=== PATIENT | female | born 1960 | race Caucasian/White ===

== ENCOUNTER 2018-11-09 19:40 | Emergency (ER) | payer SELFPAY ==
[2018-11-09 19:49] VITALS: BP 140/111; PULSE 102; RESP 22; TEMP 38.9; O2SAT 94; BMI 32.4
--- NOTE | 2018-11-09 19:50 | DI.RAD.S_ITS ---
PROCEDURE: XR CHEST 2V INDICATIONS: cough, fever TECHNIQUE: 2 views of the chest were acquired. COMPARISON: None. FINDINGS: Surgical changes and devices: None. Lungs and pleura: Mild patchy bibasilar airspace opacity. No pleural effusions or pneumothorax. Mediastinum: Mediastinal contours are normal. Heart size is normal. Bones and chest wall: No suspicious bony abnormalities. Soft tissues appear unremarkable. IMPRESSION: Bibasilar pneumonia. Follow up plain films of the chest are recommended to ensure resolution, and to exclude underlying or central malignancy. Dictated by: Nayla Wasserman M.D. on 11/09/2018 at 20:14 Approved by: Nayla Wasserman M.D. on 11/09/2018 at 20:15
[2018-11-09 20:00] VITALS: BP 149/73; PULSE 89; O2SAT 95
--- NOTE | 2018-11-09 20:07 | PC.NURSE ---
Attempted PIV placement, blood specimens obtained. PIV would not flush. No PIV access at this time. Provider is aware and is ok with holding IV for now.
[2018-11-09 20:12] LABS: Add Manual Diff / Slide Review NO; Basophils Absolute Auto 0 /uL (0-100); Basophils Percent Auto 0.4 % (0-2); Eosinophils Absolute Auto 0 /uL (0-450); Eosinophils Percent Auto 0.2 % (2-4); Hematocrit 38.7 % (36-46); Hemoglobin 13.4 g/dL (12.0-16.0); Lymphocytes Absolute Auto 800 /uL (1100-4500); Lymphocytes Percent Auto 9.2 % (25-40); Mean Corpuscular HGB Conc 34.7 % (30-36); Mean Corpuscular Hemoglobin 30.5 PG (26-34); Mean Corpuscular Volume 87.8 fL (80-100); Monocytes Absolute Auto 500 /uL (0-900); Monocytes Percent Auto 6.1 % (3-14); Neutrophils Absolute Auto 7500 /uL (1500-7000); Neutrophils Percent Auto 84.1 % (50-75); Platelet Count 270 X10^3/uL (150-400); Red Cell Distribution Width 14.2 % (11.6-14.8)
[2018-11-09 20:24] LABS: Lactate (Lactic Acid) 0.9 mmol/L (0.7-2.1)
[2018-11-09 20:26] LABS: Alanine Aminotransferase 27 IU/L (9-52); Albumin 4.2 g/dL (3.5-5.0); Albumin Globulin Ratio 1.2 (1.0-2.8); Alkaline Phosphatase 115 U/L (38-126); Aspartate Aminotransferase 46 IU/L (14-36); BUN Creatinine Ratio 21.4 (6-22); Bilirubin Total 0.7 mg/dL (0.2-1.3); Blood Urea Nitrogen 15 mg/dL (7-17); Calcium 9.2 mg/dL (8.4-10.2); Carbon Dioxide 20 mmol/L (22-32); Chloride 105 mmol/L (98-107); Creatine Kinase 713 U/L (30-135); Estimated Glomerular Filt Rate > 60.0 mL/min (>60); Globulin 3.6 g/dL (1.7-4.1); Glucose 113 mg/dL (80-110); HEMOLYSIS 17 (0-50); Magnesium 1.9 mg/dL (1.6-2.3); Potassium 3.6 mmol/L (3.4-5.1); Sodium 138 mmol/L (137-145); Total Protein 7.8 g/dL (6.3-8.2)
[2018-11-09 20:30] VITALS: BP 134/85; PULSE 96; O2SAT 95
[2018-11-09 20:33] VITALS: PULSE 91; RESP 22; O2SAT 97
[2018-11-09] MEDS: ALBUTEROL/IPRATROPIUM 3 ML AMPUL INH (20:33)
[2018-11-09 20:37] LABS: B Type Natriuretic Peptide < 100 (<100); Troponin I 0.016 ng/mL (0.01-0.034)
[2018-11-09 20:41] LABS: CKMB % Relative Index 0.3 % (1.5-5.0); Creatine Kinase MB 1.83 ng/mL (<2.37)
[2018-11-09] MEDS: ACETAMINOPHEN 325 MG TABLET 975 MG PO (20:42)
[2018-11-09] MEDS: IBUPROFEN 400 MG TABLET 800 MG PO (20:42)
[2018-11-09 20:54] LABS: Procalcitonin 0.28 ng/mL (<0.5)
[2018-11-09 21:11] VITALS: PULSE 96
[2018-11-09] MEDS: levoFLOXacin 250 MG TABLET 750 MG PO (21:21)
[2018-11-09] MEDS: predniSONE 20 MG TABLET 60 MG PO (21:21)
[2018-11-09] MEDS: ALBUTEROL HFA PREPACK 1 BOX MISC (21:22)
[2018-11-09 21:27] VITALS: BP 125/67; PULSE 99; RESP 18; O2SAT 95
--- NOTE | 2018-11-09 21:34 | RT ---
11/09/20182119 Patient instructed in use of Albuterol MDI (2 puffs Q4-6H PRN) with spacer. Also emphasis on deep breath hold on inspiration, and patient has performed well in response. VS: P 105/ EE 20/ Saturation 95% on RA/ BS diminished bases at present, otherwise clear, with occasional cough with deepr breath. Lety Richardson, ARMORING MACHINE OPERATOR
--- NOTE | 2018-11-09 21:48 | ED.SOB ---
HPI - SOB/Dyspnea <HARRISON Andrews - Last Filed: 11/09/18 21:55> General Chief Complaint: Shortness of Breath/Dyspnea Stated Complaint: possible Pneumonia Time Seen by Provider: 11/09/18 19:44 Source: patient Mode of arrival: ambulatory Limitations: no limitations History of Present Illness The patient is a 58 year old female nonsmoker who denies any history of pulmonary or cardiac disease who presents with a chief complaint of shortness of breath. She states ?I think I have pneumonia ?she states that she has been around several patients with pneumonia, and has been around several sick people. She is visiting her mother who is in hospice care. She complains of fevers, has not had anything since 500 mg of Tylenol at 3:00 p.m.. She complains of a productive cough. This all started about 3 days ago. She denies any nausea vomiting diarrhea or abdominal pain. She complains of a productive cough but states it became nonproductive today. She denies any chest pain. She denies any shortness of breath. She denies any ear pain, sore throat etc. Related Data Previous Rx's Medication Instructions Recorded levofloxacin [Levaquin] 750 mg PO DAILY #6 tab 11/09/18 prednisone 50 mg PO DAILY #5 tab 11/09/18 Review of Systems <MARIO Andrews - Last Filed: 11/09/18 21:55> Review of Systems GENERAL: See HPI HEENT: Denies sinus pain, ear pain, sore throat, difficulty swallowing, dizziness. RESPIRATORY: See HPI HEENT: Denies sinus pain, ear pain, sore throat, difficulty swallowing, dizziness. RESPIRATORY: Denies dyspnea, cough, wheezing, hemoptysis, sputum. CARDIOVASCULAR: Denies chest pain, palpitations, orthopnea, edema, GASTROINTESTINAL: Denies nausea, vomiting, abdominal pain, diarrhea, constipation, melena. : Denies dysuria, frequency, incontinence, hematuria, urinary retention. MUSCULOSKELETAL: denies weakness, joint pain, or bony pain SKIN: Denies rash, skin lesions, or other NEUROLOGIC: Denies weakness, headache, numbness, change in speech, confusion, seizures, incoordination. PSYCHIATRIC: No concerning psychosocial issues. PFSH <HARRISON Andrews - Last Filed: 11/09/18 21:55> Social History Smoking Status: Never smoker Social History Smoking Status: Never smoker Exam <MARIO Andrews - Last Filed: 11/09/18 21:55> Narrative Exam Narrative: GENERAL: This is a well-nourished, well-developed patient, coughing and exam HEAD: Atraumatic. Normocephalic. No temporal or scalp tenderness. EYES: Pupils equal round and reactive. Extraocular motions intact. No scleral icterus. No injection or drainage. ENT: Nose without bleeding, purulent drainage or septal hematoma. Throat without erythema, tonsillar hypertrophy or exudate. Uvula midline. Airway patent. NECK: Trachea midline. No JVD or lymphadenopathy. Supple, nontender, no meningeal signs. CARDIOVASCULAR: Regular rate and rhythm RESPIRATORY: Bilateral crackles expiratory lower lobes. Productive cough throughout exam. No stridor. No retractions. No accessory muscle use. Slightly tachypneic on early exam GASTROINTESTINAL: Abdomen soft, non-tender, nondistended. No hepato-splenomegaly, or palpable masses. No guarding. Active bowel sounds all 4 quadrants EXTREMITIES: No clubbing, cyanosis, or edema. No joint tenderness, effusion, or edema noted. BACK: Nontender without deformity or crepitance. No flank tenderness. NEURO: AOx3. SKIN: No rash or erythema. Initial Vital Signs Initial Vital Signs: Vital Signs Temperature 102.1 F H 11/09/18 19:49 Pulse Rate 102 H 11/09/18 19:49 Respiratory Rate 22 11/09/18 19:49 Blood Pressure 140/111 H 11/09/18 19:49 Pulse Oximetry 94 11/09/18 19:49 <Edis Fisher DO - Last Filed: 11/09/18 21:56> Initial Vital Signs Initial Vital Signs: Vital Signs Temperature 102.1 F H 11/09/18 19:49 Pulse Rate 102 H 11/09/18 19:49 Respiratory Rate 22 11/09/18 19:49 Blood Pressure 140/111 H 11/09/18 19:49 Pulse Oximetry 94 11/09/18 19:49 Course <MARIO Andrews - Last Filed: 11/09/18 21:55> Orders Ordered: ED Orders 11/09/18 19:49 Consult to Respiratory Therapy Evaluate & Treat 11/09/18 19:50 XR chest 2V Stat 11/09/18 19:55 B Type Natriuretic Peptide Stat Complete Blood Count AUTO DIFF Stat Comprehensive Metabolic Panel Stat Lactate (Lactic Acid) Stat Magnesium Stat Procalcitonin Stat Troponin & CK Cardiac Panel Stat 11/09/18 20:28 Blood Culture Stat Discontinued Medications Acetaminophen (Tylenol) 975 mg PO NOW ONE Stop: 11/09/18 19:51 Last Admin: 11/09/18 20:42 Dose: 975 mg Albuterol (Ventolin Hfa Prepack) 1 box MISC SEEINSTR ONE Stop: 11/09/18 21:08 Last Admin: 11/09/18 21:22 Dose: 1 box Albuterol/Ipratropium (Duoneb) 3 ml INH NOW ONE Stop: 11/09/18 19:49 Last Admin: 11/09/18 20:33 Dose: 3 ml Ibuprofen (Advil) 800 mg PO NOW ONE Stop: 11/09/18 20:06 Last Admin: 11/09/18 20:42 Dose: 800 mg Levofloxacin (Levaquin) 750 mg PO NOW ONE Stop: 11/09/18 21:05 Last Admin: 11/09/18 21:21 Dose: 750 mg Prednisone (Deltasone) 60 mg PO NOW ONE Stop: 11/09/18 21:08 Last Admin: 11/09/18 21:21 Dose: 60 mg Vital Signs - 8 hr 11/09/18 19:49 11/09/18 20:00 11/09/18 20:30 Temperature 102.1 F H Pulse Rate 102 H 89 96 H Respiratory Rate 22 Blood Pressure 140/111 H Blood Pressure [Left Arm] 149/73 H 134/85 Pulse Oximetry 94 95 95 11/09/18 20:33 11/09/18 21:11 11/09/18 21:27 Temperature Pulse Rate 91 H 96 H 99 H Respiratory Rate 22 18 Blood Pressure Blood Pressure [Left Arm] 125/67 Pulse Oximetry 97 95 <Edis Fisher DO - Last Filed: 11/09/18 21:56> Orders Ordered: ED Orders 11/09/18 19:49 Consult to Respiratory Therapy Evaluate & Treat 11/09/18 19:50 XR chest 2V Stat 11/09/18 19:55 B Type Natriuretic Peptide Stat Complete Blood Count AUTO DIFF Stat Comprehensive Metabolic Panel Stat Lactate (Lactic Acid) Stat Magnesium Stat Procalcitonin Stat Troponin & CK Cardiac Panel Stat 11/09/18 20:28 Blood Culture Stat Discontinued Medications Acetaminophen (Tylenol) 975 mg PO NOW ONE Stop: 11/09/18 19:51 Last Admin: 11/09/18 20:42 Dose: 975 mg Albuterol (Ventolin Hfa Prepack) 1 box MISC SEEINSTR ONE Stop: 11/09/18 21:08 Last Admin: 11/09/18 21:22 Dose: 1 box Albuterol/Ipratropium (Duoneb) 3 ml INH NOW ONE Stop: 11/09/18 19:49 Last Admin: 11/09/18 20:33 Dose: 3 ml Ibuprofen (Advil) 800 mg PO NOW ONE Stop: 11/09/18 20:06 Last Admin: 11/09/18 20:42 Dose: 800 mg Levofloxacin (Levaquin) 750 mg PO NOW ONE Stop: 11/09/18 21:05 Last Admin: 11/09/18 21:21 Dose: 750 mg Prednisone (Deltasone) 60 mg PO NOW ONE Stop: 11/09/18 21:08 Last Admin: 11/09/18 21:21 Dose: 60 mg Vital Signs - 8 hr 11/09/18 19:49 11/09/18 20:00 11/09/18 20:30 Temperature 102.1 F H Pulse Rate 102 H 89 96 H Respiratory Rate 22 Blood Pressure 140/111 H Blood Pressure [Left Arm] 149/73 H 134/85 Pulse Oximetry 94 95 95 11/09/18 20:33 11/09/18 21:11 11/09/18 21:27 Temperature Pulse Rate 91 H 96 H 99 H Respiratory Rate 22 18 Blood Pressure Blood Pressure [Left Arm] 125/67 Pulse Oximetry 97 95 MDM - SOB/Dyspnea <MARIO Andrews - Last Filed: 11/09/18 21:55> Lab Data Result diagrams: 11/09/18 19:55 11/09/18 19:55 Lab Results 11/09/18 11/09/18 11/09/18 Range/Units 19:55 19:55 19:55 WBC 9.0 (4.5-11.0) X10^3/uL RBC 4.40 (4.0-5.2) X10^6/uL Hgb 13.4 (12.0-16.0) g/dL Hct 38.7 (36-46) % MCV 87.8 (80-100) fL MCH 30.5 (26-34) PG MCHC 34.7 (30-36) % RDW 14.2 (11.6-14.8) % Plt Count 270 (150-400) X10^3/uL Neut % (Auto) 84.1 H (50-75) % Lymph % (Auto) 9.2 L (25-40) % Kay % (Auto) 6.1 (3-14) % Eos % (Auto) 0.2 L (2-4) % Baso % (Auto) 0.4 (0-2) % Neut # (Auto) 7500 H (3494-1853) /uL Lymph # (Auto) 800 L (4946-6616) /uL Kay # (Auto) 500 (0-900) /uL Eos # (Auto) 0 (0-450) /uL Baso # (Auto) 0 (0-100) /uL Sodium 138 (137-145) mmol/L Potassium 3.6 (3.4-5.1) mmol/L Chloride 105 (98-107) mmol/L Carbon Dioxide 20 L (22-32) mmol/L BUN 15 (7-17) mg/dL Creatinine 0.70 (0.52-1.04) mg/dL Estimated GFR > 60.0 (>60) mL/min BUN/Creatinine Ratio 21.4 (6-22) Glucose 113 H (80-110) mg/dL Lactate (0.7-2.1) mmol/L Calcium 9.2 (8.4-10.2) mg/dL Magnesium 1.9 (1.6-2.3) mg/dL Total Bilirubin 0.7 (0.2-1.3) mg/dL AST 46 H (14-36) IU/L ALT 27 (9-52) IU/L Alkaline Phosphatase 115 (38-126) U/L Total Creatine Kinase 713 H (30-135) U/L CK-MB (CK-2) 1.83 (<2.37) ng/mL CK-MB (CK-2) Rel Index 0.3 L (1.5-5.0) % Troponin I 0.016 (0.01-0.034) ng/mL B-Natriuretic Peptide < 100 (<100) Total Protein 7.8 (6.3-8.2) g/dL Albumin 4.2 (3.5-5.0) g/dL Globulin 3.6 (1.7-4.1) g/dL Albumin/Globulin Ratio 1.2 (1.0-2.8) Procalcitonin 0.28 (<0.5) ng/mL 11/09/18 Range/Units 19:55 WBC (4.5-11.0) X10^3/uL RBC (4.0-5.2) X10^6/uL Hgb (12.0-16.0) g/dL Hct (36-46) % MCV (80-100) fL MCH (26-34) PG MCHC (30-36) % RDW (11.6-14.8) % Plt Count (150-400) X10^3/uL Neut % (Auto) (50-75) % Lymph % (Auto) (25-40) % Kay % (Auto) (3-14) % Eos % (Auto) (2-4) % Baso % (Auto) (0-2) % Neut # (Auto) (6185-7872) /uL Lymph # (Auto) (6121-6864) /uL Kay # (Auto) (0-900) /uL Eos # (Auto) (0-450) /uL Baso # (Auto) (0-100) /uL Sodium (137-145) mmol/L Potassium (3.4-5.1) mmol/L Chloride (98-107) mmol/L Carbon Dioxide (22-32) mmol/L BUN (7-17) mg/dL Creatinine (0.52-1.04) mg/dL Estimated GFR (>60) mL/min BUN/Creatinine Ratio (6-22) Glucose (80-110) mg/dL Lactate 0.9 (0.7-2.1) mmol/L Calcium (8.4-10.2) mg/dL Magnesium (1.6-2.3) mg/dL Total Bilirubin (0.2-1.3) mg/dL AST (14-36) IU/L ALT (9-52) IU/L Alkaline Phosphatase (38-126) U/L Total Creatine Kinase (30-135) U/L CK-MB (CK-2) (<2.37) ng/mL CK-MB (CK-2) Rel Index (1.5-5.0) % Troponin I (0.01-0.034) ng/mL B-Natriuretic Peptide (<100) Total Protein (6.3-8.2) g/dL Albumin (3.5-5.0) g/dL Globulin (1.7-4.1) g/dL Albumin/Globulin Ratio (1.0-2.8) Procalcitonin (<0.5) ng/mL Imaging Data Chest x-ray: Radiologist's impression: Cindi Muro 58 [address] [place] [address] XRay Report Signed Patient: Cindi MuroMR#: [id number] : 9Acct:[id number] Age/Sex: 58 / FDate of Service: 11/09/18 Loc: ED Accession Number: [id number] Procedure: XR chest 2V Ordering Provider: Jeanie CruzP- PROCEDURE: XR CHEST 2V INDICATIONS: cough, fever TECHNIQUE: 2 views of the chest were acquired. COMPARISON: None. FINDINGS: Surgical changes and devices: None. Lungs and pleura: Mild patchy bibasilar airspace opacity. No pleural effusions or pneumothorax. Mediastinum: Mediastinal contours are normal. Heart size is normal. Bones and chest wall: No suspicious bony abnormalities. Soft tissues appear unremarkable. IMPRESSION: Bibasilar pneumonia. Follow up plain films of the chest are recommended to ensure resolution, and to exclude underlying or central malignancy. Dictated by: Nayla Wasserman M.D. on 11/09/2018 at 20:14 Approved by: Nayla Wasserman M.D. on 11/09/2018 at 20:15 [facility] Narrative Medical decision making narrative: The patient is a 4-year-old female who presents with ?I think I have pneumonia.She clinically has pneumonia on exam, which correlates with her chest x-ray. She has a negative troponin, slightly elevated CK, has no leukocytosis and a normal lactate. She is able to tolerate p.o. fluids and p.o. antibiotics. She immediately request to go home, I discussed that I could certainly try to keep her in the hospital. She states she wants to go home repeatedly. I discussed at length strict return precautions for any increased respiratory effort, started her on Levaquin, steroids and she received a nebulizer in the emergency department. She was discharged with a spacer as well as an incentive spirometer. The patient is nontoxic appearing throughout her stay in the emergency department. Her exam improved after nebulizer treatment. I discussed at length follow up with PCP, discussed that the walk-in clinic and to ED followup, discussed low threshold for return emergency department visit. Patient states understanding of return precautions as well as follow-up care. No questions or concerns upon discharge. <Edis Fisher, DO - Last Filed: 11/09/18 21:56> Lab Data Lab Results 11/09/18 11/09/18 11/09/18 Range/Units 19:55 19:55 19:55 WBC 9.0 (4.5-11.0) X10^3/uL RBC 4.40 (4.0-5.2) X10^6/uL Hgb 13.4 (12.0-16.0) g/dL Hct 38.7 (36-46) % MCV 87.8 (80-100) fL MCH 30.5 (26-34) PG MCHC 34.7 (30-36) % RDW 14.2 (11.6-14.8) % Plt Count 270 (150-400) X10^3/uL Neut % (Auto) 84.1 H (50-75) % Lymph % (Auto) 9.2 L (25-40) % Kay % (Auto) 6.1 (3-14) % Eos % (Auto) 0.2 L (2-4) % Baso % (Auto) 0.4 (0-2) % Neut # (Auto) 7500 H (3185-3534) /uL Lymph # (Auto) 800 L (3219-7122) /uL Kay # (Auto) 500 (0-900) /uL Eos # (Auto) 0 (0-450) /uL Baso # (Auto) 0 (0-100) /uL Sodium 138 (137-145) mmol/L Potassium 3.6 (3.4-5.1) mmol/L Chloride 105 (98-107) mmol/L Carbon Dioxide 20 L (22-32) mmol/L BUN 15 (7-17) mg/dL Creatinine 0.70 (0.52-1.04) mg/dL Estimated GFR > 60.0 (>60) mL/min BUN/Creatinine Ratio 21.4 (6-22) Glucose 113 H (80-110) mg/dL Lactate (0.7-2.1) mmol/L Calcium 9.2 (8.4-10.2) mg/dL Magnesium 1.9 (1.6-2.3) mg/dL Total Bilirubin 0.7 (0.2-1.3) mg/dL AST 46 H (14-36) IU/L ALT 27 (9-52) IU/L Alkaline Phosphatase 115 (38-126) U/L Total Creatine Kinase 713 H (30-135) U/L CK-MB (CK-2) 1.83 (<2.37) ng/mL CK-MB (CK-2) Rel Index 0.3 L (1.5-5.0) % Troponin I 0.016 (0.01-0.034) ng/mL B-Natriuretic Peptide < 100 (<100) Total Protein 7.8 (6.3-8.2) g/dL Albumin 4.2 (3.5-5.0) g/dL Globulin 3.6 (1.7-4.1) g/dL Albumin/Globulin Ratio 1.2 (1.0-2.8) Procalcitonin 0.28 (<0.5) ng/mL 11/09/18 Range/Units 19:55 WBC (4.5-11.0) X10^3/uL RBC (4.0-5.2) X10^6/uL Hgb (12.0-16.0) g/dL Hct (36-46) % MCV (80-100) fL MCH (26-34) PG MCHC (30-36) % RDW (11.6-14.8) % Plt Count (150-400) X10^3/uL Neut % (Auto) (50-75) % Lymph % (Auto) (25-40) % Kay % (Auto) (3-14) % Eos % (Auto) (2-4) % Baso % (Auto) (0-2) % Neut # (Auto) (3074-5990) /uL Lymph # (Auto) (0330-9481) /uL Kay # (Auto) (0-900) /uL Eos # (Auto) (0-450) /uL Baso # (Auto) (0-100) /uL Sodium (137-145) mmol/L Potassium (3.4-5.1) mmol/L Chloride (98-107) mmol/L Carbon Dioxide (22-32) mmol/L BUN (7-17) mg/dL Creatinine (0.52-1.04) mg/dL Estimated GFR (>60) mL/min BUN/Creatinine Ratio (6-22) Glucose (80-110) mg/dL Lactate 0.9 (0.7-2.1) mmol/L Calcium (8.4-10.2) mg/dL Magnesium (1.6-2.3) mg/dL Total Bilirubin (0.2-1.3) mg/dL AST (14-36) IU/L ALT (9-52) IU/L Alkaline Phosphatase (38-126) U/L Total Creatine Kinase (30-135) U/L CK-MB (CK-2) (<2.37) ng/mL CK-MB (CK-2) Rel Index (1.5-5.0) % Troponin I (0.01-0.034) ng/mL B-Natriuretic Peptide (<100) Total Protein (6.3-8.2) g/dL Albumin (3.5-5.0) g/dL Globulin (1.7-4.1) g/dL Albumin/Globulin Ratio (1.0-2.8) Procalcitonin (<0.5) ng/mL Discharge Plan Departure Patient Disposition: Home Clinical Impression: Pneumonia Qualifiers: Pneumonia type: due to unspecified organism Laterality: bilateral Lung location: lower lobe of lung Qualified Code(s): J18.1 - Lobar pneumonia, unspecified organism Instructions: How to Use a Metered-Dose Inhaler, DI for Pneumonia -- Adult Activity Restrictions/Additional Instructions: You have pneumonia today. We have started antibiotic therapy, given you steroids as well as an inhaler. I have referred due to the health human resource manager, who can help you identify primary care provider. You need follow-up, especially imaging to ensure that there are no masses or anything behind the pneumonia. As I discussed, please have a low threshold to come back to the emergency department. Please rest and push fluids. Prescriptions: New prednisone 50 mg tablet 50 mg PO DAILY Qty: 5 RF: 0 levofloxacin [Levaquin] 750 mg tablet 750 mg PO DAILY Qty: 6 RF: 0 Referrals: [facility] [Outside] <Edis Fisher, - Last Filed: 11/09/18 21:56> [facility] Attending Micki Attestation: I was available for consultation during this patient's emergency department encounter
--- NOTE | 2018-11-09 21:55 | ED_ITS ---
HPI - SOB/Dyspnea <HARRISON Andrews - Last Filed: 11/09/18 21:55> General Chief Complaint: Shortness of Breath/Dyspnea Stated Complaint: possible Pneumonia Time Seen by Provider: 11/09/18 19:44 Source: patient Mode of arrival: ambulatory Limitations: no limitations History of Present Illness The patient is a 58 year old female nonsmoker who denies any history of pulmonary or cardiac disease who presents with a chief complaint of shortness of breath. She states ?I think I have pneumonia ?she states that she has been around several patients with pneumonia, and has been around several sick people. She is visiting her mother who is in hospice care. She complains of fevers, has not had anything since 500 mg of Tylenol at 3:00 p.m.. She complains of a productive cough. This all started about 3 days ago. She denies any nausea vomiting diarrhea or abdominal pain. She complains of a productive cough but states it became nonproductive today. She denies any chest pain. She denies any shortness of breath. She denies any ear pain, sore throat etc. Related Data Previous Rx's Medication Instructions Recorded levofloxacin [Levaquin] 750 mg PO DAILY #6 tab 11/09/18 prednisone 50 mg PO DAILY #5 tab 11/09/18 Review of Systems <MARIO Andrews - Last Filed: 11/09/18 21:55> Review of Systems GENERAL: See HPI HEENT: Denies sinus pain, ear pain, sore throat, difficulty swallowing, dizziness. RESPIRATORY: See HPI HEENT: Denies sinus pain, ear pain, sore throat, difficulty swallowing, dizziness. RESPIRATORY: Denies dyspnea, cough, wheezing, hemoptysis, sputum. CARDIOVASCULAR: Denies chest pain, palpitations, orthopnea, edema, GASTROINTESTINAL: Denies nausea, vomiting, abdominal pain, diarrhea, constipation, melena. : Denies dysuria, frequency, incontinence, hematuria, urinary retention. MUSCULOSKELETAL: denies weakness, joint pain, or bony pain SKIN: Denies rash, skin lesions, or other NEUROLOGIC: Denies weakness, headache, numbness, change in speech, confusion, seizures, incoordination. PSYCHIATRIC: No concerning psychosocial issues. PFSH <HARRISON Andrews - Last Filed: 11/09/18 21:55> Social History Smoking Status: Never smoker Social History Smoking Status: Never smoker Exam <MRAIO Andrews - Last Filed: 11/09/18 21:55> Narrative Exam Narrative: GENERAL: This is a well-nourished, well-developed patient, coughing and exam HEAD: Atraumatic. Normocephalic. No temporal or scalp tenderness. EYES: Pupils equal round and reactive. Extraocular motions intact. No scleral icterus. No injection or drainage. ENT: Nose without bleeding, purulent drainage or septal hematoma. Throat without erythema, tonsillar hypertrophy or exudate. Uvula midline. Airway patent. NECK: Trachea midline. No JVD or lymphadenopathy. Supple, nontender, no meningeal signs. CARDIOVASCULAR: Regular rate and rhythm RESPIRATORY: Bilateral crackles expiratory lower lobes. Productive cough t hroughout exam. No stridor. No retractions. No accessory muscle use. Slightly tachypneic on early exam GASTROINTESTINAL: Abdomen soft, non-tender, nondistended. No hepato- splenomegaly, or palpable masses. No guarding. Active bowel sounds all 4 quadrants EXTREMITIES: No clubbing, cyanosis, or edema. No joint tenderness, effusion, or edema noted. BACK: Nontender without deformity or crepitance. No flank tenderness. NEURO: AOx3. SKIN: No rash or erythema. Initial Vital Signs Initial Vital Signs: Vital Signs Temperature 102.1 F H 11/09/18 19:49 Pulse Rate 102 H 11/09/18 19:49 Respiratory Rate 22 11/09/18 19:49 Blood Pressure 140/111 H 11/09/18 19:49 Pulse Oximetry 94 11/09/18 19:49 <Edis Fisher DO - Last Filed: 11/09/18 21:56> Initial Vital Signs Initial Vital Signs: Vital Signs Temperature 102.1 F H 11/09/18 19:49 Pulse Rate 102 H 11/09/18 19:49 Respiratory Rate 22 11/09/18 19:49 Blood Pressure 140/111 H 11/09/18 19:49 Pulse Oximetry 94 11/09/18 19:49 Course <MARIO Andrews - Last Filed: 11/09/18 21:55> Orders Ordered: ED Orders 11/09/18 19:49 Consult to Respiratory Therapy Evaluate & Treat 11/09/18 19:50 XR chest 2V Stat 11/09/18 19:55 B Type Natriuretic Peptide Stat Complete Blood Count AUTO DIFF Stat Comprehensive Metabolic Panel Stat Lactate (Lactic Acid) Stat Magnesium Stat Procalcitonin Stat Troponin & CK Cardiac Panel Stat 11/09/18 20:28 Blood Culture Stat Discontinued Medications Acetaminophen (Tylenol) 975 mg PO NOW ONE Stop: 11/09/18 19:51 Last Admin: 11/09/18 20:42 Dose: 975 mg Albuterol (Ventolin Hfa Prepack) 1 box MISC SEEINSTR ONE Stop: 11/09/18 21:08 Last Admin: 11/09/18 21:22 Dose: 1 box Albuterol/Ipratropium (Duoneb) 3 ml INH NOW ONE Stop: 11/09/18 19:49 Last Admin: 11/09/18 20:33 Dose: 3 ml Ibuprofen (Advil) 800 mg PO NOW ONE Stop: 11/09/18 20:06 Last Admin: 11/09/18 20:42 Dose: 800 mg Levofloxacin (Levaquin) 750 mg PO NOW ONE Stop: 11/09/18 21:05 Last Admin: 11/09/18 21:21 Dose: 750 mg Prednisone (Deltasone) 60 mg PO NOW ONE Stop: 11/09/18 21:08 Last Admin: 11/09/18 21:21 Dose: 60 mg Vital Signs - 8 hr 11/09/18 19:49 11/09/18 20:00 11/09/18 20:30 Temperature 102.1 F H Pulse Rate 102 H 89 96 H Respiratory Rate 22 Blood Pressure 140/111 H Blood Pressure [Left Arm] 149/73 H 134/85 Pulse Oximetry 94 95 95 11/09/18 20:33 11/09/18 21:11 11/09/18 21:27 Temperature Pulse Rate 91 H 96 H 99 H Respiratory Rate 22 18 Blood Pressure Blood Pressure [Left Arm] 125/67 Pulse Oximetry 97 95 <Edis Fisher DO - Last Filed: 11/09/18 21:56> Orders Ordered: ED Orders 11/09/18 19:49 Consult to Respiratory Therapy Evaluate & Treat 11/09/18 19:50 XR chest 2V Stat 11/09/18 19:55 B Type Natriuretic Peptide Stat Complete Blood Count AUTO DIFF Stat Comprehensive Metabolic Panel Stat Lactate (Lactic Acid) Stat Magnesium Stat Procalcitonin Stat Troponin & CK Cardiac Panel Stat 11/09/18 20:28 Blood Culture Stat Discontinued Medications Acetaminophen (Tylenol) 975 mg PO NOW ONE Stop: 11/09/18 19:51 Last Admin: 11/09/18 20:42 Dose: 975 mg Albuterol (Ventolin Hfa Prepack) 1 box MISC SEEINSTR ONE Stop: 11/09/18 21:08 Last Admin: 11/09/18 21:22 Dose: 1 box Albuterol/Ipratropium (Duoneb) 3 ml INH NOW ONE Stop: 11/09/18 19:49 Last Admin: 11/09/18 20:33 Dose: 3 ml Ibuprofen (Advil) 800 mg PO NOW ONE Stop: 11/09/18 20:06 Last Admin: 11/09/18 20:42 Dose: 800 mg Levofloxacin (Levaquin) 750 mg PO NOW ONE Stop: 11/09/18 21:05 Last Admin: 11/09/18 21:21 Dose: 750 mg Prednisone (Deltasone) 60 mg PO NOW ONE Stop: 11/09/18 21:08 Last Admin: 11/09/18 21:21 Dose: 60 mg Vital Signs - 8 hr 11/09/18 19:49 11/09/18 20:00 11/09/18 20:30 Temperature 102.1 F H Pulse Rate 102 H 89 96 H Respiratory Rate 22 Blood Pressure 140/111 H Blood Pressure [Left Arm] 149/73 H 134/85 Pulse Oximetry 94 95 95 11/09/18 20:33 11/09/18 21:11 11/09/18 21:27 Temperature Pulse Rate 91 H 96 H 99 H Respiratory Rate 22 18 Blood Pressure Blood Pressure [Left Arm] 125/67 Pulse Oximetry 97 95 MDM - SOB/Dyspnea <AMRIO Andrews - Last Filed: 11/09/18 21:55> Lab Data Result diagrams: 11/09/18 19:55 11/09/18 19:55 Lab Results 11/09/18 11/09/18 11/09/18 Range/Units 19:55 19:55 19:55 WBC 9.0 (4.5-11.0) X10^3/uL RBC 4.40 (4.0-5.2) X10^6/uL Hgb 13.4 (12.0-16.0) g/dL Hct 38.7 (36-46) % MCV 87.8 (80-100) fL MCH 30.5 (26-34) PG MCHC 34.7 (30-36) % RDW 14.2 (11.6-14.8) % Plt Count 270 (150-400) X10^3/uL Neut % (Auto) 84.1 H (50-75) % Lymph % (Auto) 9.2 L (25-40) % Mitchell % (Auto) 6.1 (3-14) % Eos % (Auto) 0.2 L (2-4) % Baso % (Auto) 0.4 (0-2) % Neut # (Auto) 7500 H (8146-8773) /uL Lymph # (Auto) 800 L (9416-6659) /uL Mitchell # (Auto) 500 (0-900) /uL Eos # (Auto) 0 (0-450) /uL Baso # (Auto) 0 (0-100) /uL Sodium 138 (137-145) mmol/L Potassium 3.6 (3.4-5.1) mmol/L Chloride 105 (98-107) mmol/L Carbon Dioxide 20 L (22-32) mmol/L BUN 15 (7-17) mg/dL Creatinine 0.70 (0.52-1.04) mg/dL Estimated GFR > 60.0 (>60) mL/min BUN/Creatinine Ratio 21.4 (6-22) Glucose 113 H (80-110) mg/dL Lactate (0.7-2.1) mmol/L Calcium 9.2 (8.4-10.2) mg/dL Magnesium 1.9 (1.6-2.3) mg/dL Total Bilirubin 0.7 (0.2-1.3) mg/dL AST 46 H (14-36) IU/L ALT 27 (9-52) IU/L Alkaline Phosphatase 115 (38-126) U/L Total Creatine Kinase 713 H (30-135) U/L CK-MB (CK-2) 1.83 (<2.37) ng/mL CK-MB (CK-2) Rel Index 0.3 L (1.5-5.0) % Troponin I 0.016 (0.01-0.034) ng/mL B-Natriuretic Peptide < 100 (<100) Total Protein 7.8 (6.3-8.2) g/dL Albumin 4.2 (3.5-5.0) g/dL Globulin 3.6 (1.7-4.1) g/dL Albumin/Globulin Ratio 1.2 (1.0-2.8) Procalcitonin 0.28 (<0.5) ng/mL 11/09/18 Range/Units 19:55 WBC (4.5-11.0) X10^3/uL RBC (4.0-5.2) X10^6/uL Hgb (12.0-16.0) g/dL Hct (36-46) % MCV (80-100) fL MCH (26-34) PG MCHC (30-36) % RDW (11.6-14.8) % Plt Count (150-400) X10^3/uL Neut % (Auto) (50-75) % Lymph % (Auto) (25-40) % Mitchell % (Auto) (3-14) % Eos % (Auto) (2-4) % Baso % (Auto) (0-2) % Neut # (Auto) (6608-8299) /uL Lymph # (Auto) (2593-0470) /uL Mitchell # (Auto) (0-900) /uL Eos # (Auto) (0-450) /uL Baso # (Auto) (0-100) /uL Sodium (137-145) mmol/L Potassium (3.4-5.1) mmol/L Chloride (98-107) mmol/L Carbon Dioxide (22-32) mmol/L BUN (7-17) mg/dL Creatinine (0.52-1.04) mg/dL Estimated GFR (>60) mL/min BUN/Creatinine Ratio (6-22) Glucose (80-110) mg/dL Lactate 0.9 (0.7-2.1) mmol/L Calcium (8.4-10.2) mg/dL Magnesium (1.6-2.3) mg/dL Total Bilirubin (0.2-1.3) mg/dL AST (14-36) IU/L ALT (9-52) IU/L Alkaline Phosphatase (38-126) U/L Total Creatine Kinase (30-135) U/L CK-MB (CK-2) (<2.37) ng/mL CK-MB (CK-2) Rel Index (1.5-5.0) % Troponin I (0.01-0.034) ng/mL B-Natriuretic Peptide (<100) Total Protein (6.3-8.2) g/dL Albumin (3.5-5.0) g/dL Globulin (1.7-4.1) g/dL Albumin/Globulin Ratio (1.0-2.8) Procalcitonin (<0.5) ng/mL Imaging Data Chest x-ray: Radiologist's impression: Cindi Muro 58 F 1960 [place] [address] XRay Report Signed Patient: Cindi MuroMR#: [id number] : 9Acct:[id number] Age/Sex: 58 / FDate of Service: 11/09/18 Loc: ED Accession Number: [id number] Procedure: XR chest 2V Ordering Provider: Jeanie CruzP- PROCEDURE: XR CHEST 2V INDICATIONS: cough, fever TECHNIQUE: 2 views of the chest were acquired. COMPARISON: None. FINDINGS: Surgical changes and devices: None. Lungs and pleura: Mild patchy bibasilar airspace opacity. No pleural effusions or pneumothorax. Mediastinum: Mediastinal contours are normal. Heart size is normal. Bones and chest wall: No suspicious bony abnormalities. Soft tissues appear unremarkable. IMPRESSION: Bibasilar pneumonia. Follow up plain films of the chest are recommended to ensure resolution, and to exclude underlying or central malignancy. Dictated by: Nayla Wasserman M.D. on 11/09/2018 at 20:14 Approved by: Nayla Wasserman M.D. on 11/09/2018 at 20:15 [facility] Narrative Medical decision making narrative: The patient is a 4-year-old female who presents with ?I think I have pneumonia.She clinically has pneumonia on exam, which correlates with her chest x-ray. She has a negative troponin, slightly elevated CK, has no leukocytosis and a normal lactate. She is able to tolerate p.o. fluids and p.o. antibiotics. She immediately request to go home, I discussed that I could certainly try to keep her in the hospital. She states she wants to go home repeatedly. I discussed at length strict return precautions for any increased respiratory effort, started her on Levaquin, steroids and she received a nebulizer in the emergency department. She was discharged with a spacer as well as an incentive spirometer. The patient is nontoxic appearing throughout her stay in the emergency department. Her exam improved after nebulizer treatment. I discussed at length follow up with PCP, discussed that the walk-in clinic and to ED followup, discussed low threshold for return emergency department visit. Patient states understanding of return precautions as well as follow-up care. No questions or concerns upon discharge. <Edis Fisher, DO - Last Filed: 11/09/18 21:56> Lab Data Lab Results 11/09/18 11/09/18 11/09/18 Range/Units 19:55 19:55 19:55 WBC 9.0 (4.5-11.0) X10^3/uL RBC 4.40 (4.0-5.2) X10^6/uL Hgb 13.4 (12.0-16.0) g/dL Hct 38.7 (36-46) % MCV 87.8 (80-100) fL MCH 30.5 (26-34) PG MCHC 34.7 (30-36) % RDW 14.2 (11.6-14.8) % Plt Count 270 (150-400) X10^3/uL Neut % (Auto) 84.1 H (50-75) % Lymph % (Auto) 9.2 L (25-40) % Mitchell % (Auto) 6.1 (3-14) % Eos % (Auto) 0.2 L (2-4) % Baso % (Auto) 0.4 (0-2) % Neut # (Auto) 7500 H (6255-6700) /uL Lymph # (Auto) 800 L (1135-4358) /uL Mitchell # (Auto) 500 (0-900) /uL Eos # (Auto) 0 (0-450) /uL Baso # (Auto) 0 (0-100) /uL Sodium 138 (137-145) mmol/L Potassium 3.6 (3.4-5.1) mmol/L Chloride 105 (98-107) mmol/L Carbon Dioxide 20 L (22-32) mmol/L BUN 15 (7-17) mg/dL Creatinine 0.70 (0.52-1.04) mg/dL Estimated GFR > 60.0 (>60) mL/min BUN/Creatinine Ratio 21.4 (6-22) Glucose 113 H (80-110) mg/dL Lactate (0.7-2.1) mmol/L Calcium 9.2 (8.4-10.2) mg/dL Magnesium 1.9 (1.6-2.3) mg/dL Total Bilirubin 0.7 (0.2-1.3) mg/dL AST 46 H (14-36) IU/L ALT 27 (9-52) IU/L Alkaline Phosphatase 115 (38-126) U/L Total Creatine Kinase 713 H (30-135) U/L CK-MB (CK-2) 1.83 (<2.37) ng/mL CK-MB (CK-2) Rel Index 0.3 L (1.5-5.0) % Troponin I 0.016 (0.01-0.034) ng/mL B-Natriuretic Peptide < 100 (<100) Total Protein 7.8 (6.3-8.2) g/dL Albumin 4.2 (3.5-5.0) g/dL Globulin 3.6 (1.7-4.1) g/dL Albumin/Globulin Ratio 1.2 (1.0-2.8) Procalcitonin 0.28 (<0.5) ng/mL 11/09/18 Range/Units 19:55 WBC (4.5-11.0) X10^3/uL RBC (4.0-5.2) X10^6/uL Hgb (12.0-16.0) g/dL Hct (36-46) % MCV (80-100) fL MCH (26-34) PG MCHC (30-36) % RDW (11.6-14.8) % Plt Count (150-400) X10^3/uL Neut % (Auto) (50-75) % Lymph % (Auto) (25-40) % Mitchell % (Auto) (3-14) % Eos % (Auto) (2-4) % Baso % (Auto) (0-2) % Neut # (Auto) (2442-3009) /uL Lymph # (Auto) (5763-7700) /uL Mitchell # (Auto) (0-900) /uL Eos # (Auto) (0-450) /uL Baso # (Auto) (0-100) /uL Sodium (137-145) mmol/L Potassium (3.4-5.1) mmol/L Chloride (98-107) mmol/L Carbon Dioxide (22-32) mmol/L BUN (7-17) mg/dL Creatinine (0.52-1.04) mg/dL Estimated GFR (>60) mL/min BUN/Creatinine Ratio (6-22) Glucose (80-110) mg/dL Lactate 0.9 (0.7-2.1) mmol/L Calcium (8.4-10.2) mg/dL Magnesium (1.6-2.3) mg/dL Total Bilirubin (0.2-1.3) mg/dL AST (14-36) IU/L ALT (9-52) IU/L Alkaline Phosphatase (38-126) U/L Total Creatine Kinase (30-135) U/L CK-MB (CK-2) (<2.37) ng/mL CK-MB (CK-2) Rel Index (1.5-5.0) % Troponin I (0.01-0.034) ng/mL B-Natriuretic Peptide (<100) Total Protein (6.3-8.2) g/dL Albumin (3.5-5.0) g/dL Globulin (1.7-4.1) g/dL Albumin/Globulin Ratio (1.0-2.8) Procalcitonin (<0.5) ng/mL Discharge Plan Departure Patient Disposition: Home Clinical Impression: Pneumonia Qualifiers: Pneumonia type: due to unspecified organism Laterality: bilateral Lung location: lower lobe of lung Qualified Code(s): J18.1 - Lobar pneumonia, unspecified organism Instructions: How to Use a Metered-Dose Inhaler, DI for Pneumonia -- Adult Activity Restrictions/Additional Instructions: You have pneumonia today. We have started antibiotic therapy, given you steroids as well as an inhaler. I have referred due to the health family resource coordinator, who can help you ident huma primary care provider. You need follow-up, especially imaging to ensure that there are no masses or anything behind the pneumonia. As I discussed, please have a low threshold to come back to the emergency department. Please rest and push fluids. Prescriptions: New prednisone 50 mg tablet 50 mg PO DAILY Qty: 5 RF: 0 levofloxacin [Levaquin] 750 mg tablet 750 mg PO DAILY Qty: 6 RF: 0 Referrals: [facility] Resources [Outside] <Edis Fisher, - Last Filed: 11/09/18 21:56> [facility] ED Attending Micki Attestation: I was available for consultation during this patient's emergency department encounter
== END 2018-11-09 22:01 | disposition home or self-care (01) ==
PROVIDERS: Emergency Provider Nurse Practitioner Family
DX: J18.1 Lobar pneumonia, unspecified organism (principal)
CPT/HCPCS: 71046; 80053; 82550; 82553; 83605; 83735; 83880; 84145; 84484; 85025; 87040; 94640; 99283; 99284

== ENCOUNTER → 2024-05-19 09:38 | Outpatient (CLI) | payer MEDICARE, SELFPAY ==
--- NOTE | 2024-05-19 09:39 | DI.RAD.S_ITS ---
PROCEDURE: XR DEXA AXIAL SKELETON INDICATIONS: breast cancer screening COMPARISON: None. FINDINGS: Lumbar Spine: Bone mineral density 1.270 g/cm2, T score 2.0. Left Femoral Neck: Bone mineral density 0.805 g/cm2, T score -0.4 Left Hip: Bone mineral density 1.001 g/cm2, T score 0.5. Fracture Risk Calculation (when applicable): 10-year fracture risk of a major osteoporotic fracture 11 percent and of a hip fracture 0.5 percent. (T score greater or equal to -1.0 to: NORMAL) (T score from -1.1 to -2.4: OSTEOPENIA) (T score less than or equal to -2.5: OSTEOPOROSIS) IMPRESSION: Normal---recommend repeat DEXA as clinically indicated. Follow-up guidelines as follows: Osteoporosis: Consider a repeat DEXA and Vertebral Fracture Assessment (VFA) exam in 2 years or sooner if medically necessary, to reassess this patient's status. Osteopenia: Consider a repeat DEXA in 2-3 years to reassess this patient's status, or if there is a new clinical indication. Normal: Consider a repeat DEXA in 5 years or sooner, or if there is a new clinical indication. All treatment decisions require clinical judgment and consideration of individual patient factors, including patient preferences, comorbidities, previous drug use, risk factors not captured in the FRAX model (e.g., frailty, falls, vitamin D deficiency, increased bone turnover, interval significant decline in bone density ) and possible under- or over-estimation of fracture risk by FRAX. In addition, the NOF Guide recommends that FDA-approved medical therapies be considered in postmenopausal women and men age >= 50 years with a: * Hip or vertebral (clinical or morphometric) fracture * T-score of <=-2.5 at the spine or hip * Ten-year fracture probability by FRAX of >= 3% for hip fracture or >=20% for major osteoporotic fracture. Dictated by: Fransisco Bishop M.D. on 05/20/2024 at 4:55 Approved by: Fransisco Bishop M.D. on 05/20/2024 at 4:56
--- NOTE | 2024-05-19 09:39 | DI.MG.S_ITS ---
[address] [address] Patient: MALCOLM LOPES. Gender: Female Date of : 1960. Age: 63 MPI: [id number] Acc: [id number] MM screening mammo BI: 05/19/2024. BI-RADS: 1 CLINICAL: 63-year old female for bilateral screening mammogram. Tyrer-Cuzick lifetime risk of 7.2%. No personal or first-degree family history of breast cancer. PRIOR EXAMS No prior examinations available. MAMMOGRAPHY TECHNIQUE: Bilateral CC and MLO tomosynthesis with synthesized views were obtained. Current study was also evaluated with a Computer Aided Detection (CAD) system. DENSITY B. There are scattered areas of fibroglandular density. MAMMOGRAPHY FINDINGS Bilateral: No suspicious mass, asymmetry, microcalcification, or other abnormality seen. CONCLUSION * No evidence of malignancy. RECOMMENDATIONS Bilateral * Annual screening mammography. OVERALL ASSESSMENT CATEGORY BI-RADS-1: Negative. The [employer] recommends annual screening mammography beginning at age 40 for women with average risk of breast cancer. ELECTRONICALLY SIGNED: Landry Corado M.D. on 05/20/2024 at 01:59:10 PM Interpreting Station ID: [id number]
== END ==
PROVIDERS: PCP Family Medicine; Referring Provider Family Medicine; Visit Provider Family Medicine
DX: Z78.0 Asymptomatic menopausal state (principal); Z12.31 Encounter for screening mammogram for malignant neoplasm of breast; M85.89 Other specified disorders of bone density and structure, multiple sites
CPT/HCPCS: 77063; 77067; 77080

== ENCOUNTER 2024-06-24 06:40 | Day surgery (SDC) | payer MEDICARE, SELFPAY ==
--- NOTE | 2024-06-24 | PATH_ITS ---
[facility] Accession Number: [id number] No. of containers..01 Tissue . 01 Material submitted: . colon - DESCENDING COLON POLYP . 01 Diagnosis: DESCENDING COLON POLYP: Tubular adenoma. STO 06/25/2024 1344 Local . 01 Electronically signed: . Devendra Núñez MD, Pathologist NPI- [id number] . 01 Gross description: . DESCENDING COLON POLYP: Received in formalin are 3 fragment(s) of johnson, soft tissue measuring 0.5 x 0.2 x 0.2 cm to 0.9 x 0.6 x 0.2 cm submitted entirely in 1 cassette(s) /AMANDA 06/25/2024 1344 Local . 01 Pathologist provided ICD-10: D12.4 . 01 CPT . 921879 Specimen Comment: A courtesy copy of this report has been sent to [facility] Pathology Performed at: [address] [address], [place], [place] [id number] MD Devendra Núñez MD Phone: [phone]
[2024-06-24 07:15] VITALS: BP 138/82; PULSE 74; RESP 16; TEMP 36.4; O2SAT 99
[2024-06-24] MEDS: LACTATED RINGERS 1,000 ML 100 ML IV (07:28)
--- NOTE | 2024-06-24 07:41 | P.HP_ITS ---
History of Present Illness History of Present Illness Date Patient Seen: 06/24/24 Time Patient Seen: 07:41 Chief complaint: SDC Narrative: 63-year-old white female presents for initial screening colonoscopy. [facility] Social History Smoking Status: Never smoker alcohol intake: current Meds Home Medications and Allergies Home Medications Medication Instructions Recorded Confirmed Type lisinopril 10 mg tablet 10 mg PO DAILY #60 tabs 04/17/24 04/17/24 Rx sodium,potassium,mag sulfates 17.5 See Rx Instructions PO .COMPLEX 05/19/24 Rx gram-3.13 gram-1.6 gram oral soln #354 mL (Suprep Bowel Prep Kit) lisinopril 10 mg tablet 10 mg PO DAILY 06/24/24 06/24/24 History Allergies Allergy/AdvReac Type Severity Reaction Status Date / Time No Known Drug Allergies Allergy Verified 06/24/24 07:13 Review of Systems Review of Systems ROS: Yes All systems reviewed with the patient and are negative except as otherwise documented Exam Vital Signs (past 8 hours): - 06/24/24 07:15 Temperature 97.6 F Pulse Rate 74 Respiratory Rate 16 Blood Pressure 138/82 Pulse Oximetry 99 Oxygen Delivery Method Room Air Oxygen Delivery Method Room Air Narrative Exam Narrative: Gen: NAD, sitting comfortably in bed, appears well HEENT: Sclera are anicteric, head is normocephalic and atraumatic, trachea is midline. CV: RRR, no JVD Resp: clear to auscultation bilaterally, equal chest wall movement bilaterally Abd: soft, nontender, normoactive bowel sounds Ext: no edema, full range of motion Neuro: Cranial nerves II-XII grossly intact, no focal deficits Skin: No erythema or ecchymosis Assessment & Plan Assessment and plan (1) Colon cancer screening: Status: Acute Assessment & Plan narrative: Patient presents for colonoscopy Risks, benefits, alternatives to colonoscopy explained, including but not limited to bowel perforation or other serious complication requiring surgery at less than 1 in 5000 colonoscopies, abdominal pain, cramping or bleeding and less than 1% of colonoscopies, and the chances that we find a diagnosis that would require further intervention of about 2%. Patient agrees to proceed. Time-Based Coding :: [TOTAL MINUTES] spent with patient and on the chart (including review of chart, obtaining history, exam, reviewing outside data, placing orders, documenting exam and treatment plan, and counseling patient) on [DATE]. PROFEE Rose Grader Document charge(s): No
[2024-06-24 08:05] VITALS: BP 99/48; PULSE 61; RESP 20; TEMP 36.2; O2SAT 94
--- NOTE | 2024-06-24 08:05 | PM.OP.COLON ---
Operative Date/Time/Diagnoses Date of procedure: 06/24/24 Time of procedure: 08:05 Pre-op diagnosis: Colon screening Post-op diagnosis: same (Descending colon polyp) Procedure & Clinicians Study performed: Colonoscopy with cold snare polypectomy descending colon polyp Same procedure as scheduled: Yes Indications: Colon screening Surgeon: Geovani Stovall Procedure Notes SCOAP/Timeout: Performed Procedure in detail: Time-out was performed. Mac was induced. Patient was placed in left lateral decubitus position. The perineum was inspected without any gross abnormality. Lubricated pediatric colonoscope was inserted and advanced to the cecum. The terminal ileum was intubated. The colonoscope was withdrawn slowly inspecting the circumference of the colon. Benign-appearing polyp was noted in the descending colon, removed completely with cold snare polypectomy and retrieved. Very small polyps may have been missed, prep quality was adequate. Retroflexed view of the rectum showed small, non prolapsed nonbleeding internal hemorrhoids. The scope was withdrawn the patient was taken to PACU in good condition. Scope withdrawal time: 11 Post-procedure Recommendations: Colonoscopy in 5 years (Next colonoscopy in 7 years) Follow up: as needed Disposition: PACU
[2024-06-24 08:12] VITALS: BP 96/48; PULSE 60; RESP 18; O2SAT 95
[2024-06-24 08:15] VITALS: BP 105/56; PULSE 65; RESP 17; O2SAT 99
[2024-06-24 08:21] VITALS: BP 96/54; PULSE 74; RESP 18; TEMP 36.7; O2SAT 20
== END 2024-06-24 08:47 | disposition home or self-care (01) ==
PROVIDERS: PCP Family Medicine; Referring Provider Surgery; Visit Provider Surgery
PROC: 0DJD8ZZ Inspection of Lower Intestinal Tract, Via Natural or Artificial Opening Endoscopic (ICD-10-PCS; CPT 45378; principal; 2024-06-24 07:45)
DX: Z12.11 Encounter for screening for malignant neoplasm of colon (principal); D12.4 Benign neoplasm of descending colon
CPT/HCPCS: 45385; J2704

== ENCOUNTER → 2024-07-04 09:02 | Outpatient (CLI) | payer MEDICARE, SELFPAY ==
[2024-07-04 09:35] LABS: Add Manual Diff / Slide Review NO; Basophils Absolute Auto 100 /uL (0-100); Basophils Percent Auto 1.2 % (0-2); Eosinophils Absolute Auto 100 /uL (0-450); Eosinophils Percent Auto 1.4 % (2-4); Hemoglobin 12.9 g/dL (12.0-16.0); Lymphocytes Absolute Auto 1900 /uL (1100-4500); Lymphocytes Percent Auto 33.2 % (25-40); Mean Corpuscular Hemoglobin 30.1 PG (26-34); Mean Corpuscular Volume 88.3 fL (80-100); Monocytes Absolute Auto 400 /uL (0-900); Monocytes Percent Auto 7.4 % (3-14); Neutrophils Absolute Auto 3300 /uL (1500-7000); Neutrophils Percent Auto 56.8 % (50-75); Platelet Count 310 X10^3/uL (150-400); Red Cell Distribution Width 14.1 % (11.6-14.8); White Blood Cell Count 5.8 X10^3/uL (4.5-11.0)
[2024-07-04 09:47] LABS: Hemoglobin A1C% w Est Avg Glu 5.4 % (4.0-6.0)
[2024-07-04 09:54] LABS: Alanine Aminotransferase 24 IU/L (<35); Albumin 4.5 g/dL (3.5-5.0); Albumin Globulin Ratio 1.6 (1.0-2.8); Alkaline Phosphatase 60 U/L (38-126); Aspartate Aminotransferase 33 IU/L (14-36); BUN Creatinine Ratio 20.9 (6-22); Bilirubin Total 1.4 mg/dL (0.2-1.3); Blood Urea Nitrogen 18 mg/dL (7-17); Calcium 9.3 mg/dL (8.4-10.2); Carbon Dioxide 25 mmol/L (22-32); Chloride 105 mmol/L (98-107); Cholesterol 217 mg/dL (140-199); Estimated Glomerular Filt Rate > 60 mL/min (>60); Globulin 2.8 g/dL (1.7-4.1); Glucose 93 mg/dL (80-110); HDL Cholesterol 61 mg/dL (40-60); HEMOLYSIS < 15 (0-50); LDL Cholesterol Calculated 141 mg/dL (<100); Potassium 4.3 mmol/L (3.4-5.1); Sodium 138 mmol/L (137-145); Total Protein 7.3 g/dL (6.3-8.2); Triglycerides 73 mg/dL (35-150)
== END ==
PROVIDERS: PCP Family Medicine; Referring Provider Family Medicine; Visit Provider Family Medicine
DX: Z00.00 Encounter for general adult medical examination without abnormal findings (principal); I10 Essential (primary) hypertension; Z13.1 Encounter for screening for diabetes mellitus; Z68.32 Body mass index [BMI] 32.0-32.9, adult; Z82.49 Family history of ischemic heart disease and other diseases of the circulatory system; Z13.220 Encounter for screening for lipoid disorders; Z79.899 Other long term (current) drug therapy
CPT/HCPCS: 36415; 80053; 80061; 83036; 84443; 85025